=== PATIENT | female | born 1935 | race Caucasian/White ===

== ENCOUNTER 2024-08-13 14:26 | Inpatient (IN) | payer MEDICARE ==
--- NOTE | 2024-08-13 15:16 | ED ---
General Adult HPI - General Chief complaint: Dizziness Stated complaint: Dizziness Time Seen by Provider: 08/13/24 14:56 Source: patient, family, EMS Mode of arrival: EMS Limitations: no limitations - History of Present Illness Initial comments: Pt is an 89-year-old female with a past medical history of aneurysm status post repair approximately 36 years ago presenting today for dizziness. Patient states that she went to stand up and began feeling dizzy and lightheaded so sat back down. The dizziness persisted she called 911 or return to the emergency department. She had associated nausea but no episodes of emesis. States has been giving Zofran in the ambulance her symptoms have since improved. She still endorses mild lightheadedness that is present at rest. States that over the last 2 to 3 weeks she has had "a hard pain" along the right side of her neck. She has not taken any pain medications for the pain. Pain worsens with turning her head to the right. She denies any changes in vision, new numbness, weakness, chest pain, shortness of breath/difficulty in breathing, abdominal pain, vomiting, fevers, chills, cough, dysuria or urinary frequency, diarrhea, melena, hematochezia or additional complaints. She takes lisinopril for high blood pressure, otherwise does not take any blood thinners or medications. - Related Data Home Medications Medication Instructions Recorded Confirmed Aspirin EC [Ecotrin Low Dose] 81 mg PO DAILY 08/13/24 08/13/24 Levothyroxine Sodium [Synthroid] 50 mcg PO DIRECTED 08/13/24 08/13/24 Pravastatin Sodium [Pravachol] 20 mg PO DIRECTED 08/13/24 08/13/24 lisinopriL [Zestril] 10 mg PO DIRECTED 08/13/24 08/13/24 Allergies Allergy/AdvReac Type Severity Reaction Status Date / Time No Known Allergies Allergy Verified 08/13/24 19:31 Review of Systems ROS Statement: Those systems with pertinent positive or pertinent negative responses have been documented in the HPI. ROS Other: All systems not noted in ROS Statement are negative. Past Medical History Past Medical History: Hyperlipidemia, Hypertension, Thyroid Disorder Additional Past Surgical History / Comment(s): brain aneurysm 50 years ago Smoking Status: Never smoker Past Alcohol Use History: None Reported Past Drug Use History: None Reported General Exam - General Exam Comments Initial Comments: PE: CONSTITUTIONAL: No apparent distress, well appearing SKIN: Warm, dry, no jaundice, hives or petechiae EYES: Pupils are equally round, extraocular movements intact without nystagmus, clear conjunctiva, non-icteric sclera HENT: Normocephalic, atraumatic, moist mucus membranes, oropharynx clear without exudates NECK: , Full range of motion, normal appearance, no neck TTP PULMONARY: Clear to auscultation without wheezes, rhonchi, or rales, normal excursion, no accessory muscle use and no stridor CARDIOVASCULAR: Regular rate, rhythm, normal S1 and S2. No appreciated murmurs, rubs or gallops. Strong radial pulses with intact distal perfusion. No lower extremity edema GASTROINTESTINAL: Soft, active bowel sounds throughout, non-tender, non- distended, no palpable masses, no rebound or guarding. No hepatosplenomegaly GENITOURINARY: MUSCULOSKELETAL: Extremities have no gross deformity, no edema, redness, or swelling. No calf swelling. Reproducible muscular tenderness to palpation just posterior to the right sternocleidomastoid where neck meets the shoulder on the right, no palpable masses or fluctuance NEUROLOGIC:_a/o x 3, GCS 15, normal mentation and speech. Moves all extremities x 4 without motor or sensory deficit, cranial nerves: II (visual pham without defects), III, IV and (extraocular movements are intact, pupils are equal with normal reaction to light), V (intact facial sensation and jaw opening), VII (no facial droop), IX and X (normal palate movement, midline uvula, normal voice), XI (symmetrical shoulder shrug and lateral head rotation against resistance), XII (midline tongue protrusion). Motor strength is 5/5 in all extremities. No abnormal movements. Normal muscle tone. Sensation to light touch is intact bilaterally. No cerebellar signs (uirsay-si-dgvi, ihko-ge-dqif are normal) PSYCHIATRIC:_normal mood and affect, thought process is clear and linear Limitations: no limitations Course Vital Signs 08/13/24 08/13/24 08/13/24 14:39 15:06 15:40 Temperature 97.4 F L Pulse Rate 62 66 Pulse Rate [ 64 Bottle Inspector ] Respiratory 18 18 Rate Blood Pressure 164/79 163/102 Blood Pressure 169/69 [Left Arm Sitting] Blood Pressure 165/88 [Left Arm Standing] Blood Pressure 159/71 [Left Arm Supine] O2 Sat by Pulse 99 100 Oximetry 08/13/24 08/13/24 08/13/24 18:52 20:21 22:27 Temperature 97.8 F Pulse Rate 67 61 66 Pulse Rate [ Bottle Inspector ] Respiratory 16 16 20 Rate Blood Pressure 161/80 152/61 148/78 Blood Pressure [Left Arm Sitting] Blood Pressure [Left Arm Standing] Blood Pressure [Left Arm Supine] O2 Sat by Pulse 97 97 97 Oximetry EKG Findings - EKG Comments: EKG Findings:: Sinus Rhythm, Rate 62 bpm, [place] interval 160 ms, QRS duration 136 ms, QT/QTc 425/431 ms, axis deviation, right bundle branch block present, T wave inversion lead V1, aVR, no ST elevations or depressions Medical Decision Making - Medical Decision Making Was pt. sent in by a medical professional or institution (ALEKSANDAR Gutierrez, NEWSPAPER DISTRIBUTOR SUPERVISOR, urgent care, hospital, or intermediate...) When possible be specific @ -No Did you speak to anyone other than the patient for history (EMS, parent, family, police, friend...)? What history was obtained from this source @ -No Did you review nursing and triage notes (agree or disagree)? Why? @ -I reviewed nursing and triage notes-of notes triage note states that patient difficulty ambulating, states that this is secondary to her dizziness Were old charts reviewed (outside hosp., previous admission, EMS record, old EKG, old radiological studies, urgent care reports/EKG's, intermediate records)? Report findings @ -Medical records reviewed-no prior visits to this hospital noted Differential Diagnosis (chest pain, altered mental status, abdominal pain women, abdominal pain men, vaginal bleeding, weakness, fever, dyspnea, syncope, headache, dizziness, GI bleed, back pain, seizure, CVA, palpatations, mental health, musculoskeletal)? @ -Differential Dizziness: Benign paroxysmal positional Vertigo, Meniere's disease, acoustic neuroma, vertebrobasilar insufficiency, cerebellar stroke, hypovolemic, arrhythmia, coronary artery syndrome, anemia, this is not meant to be an all-inclusive list EKG interpreted by me (3pts min.). @ -As above X-rays interpreted by me (1pt min.). @No cardiomegaly or consolidations CT interpreted by me (1pt min.). @Reviewed CT brain, CTA, I see no evidence of hemorrhage, mass effect or large vessel occlusion or dissection, respectively U/S interpreted by me (1pt. min.). @ -None done What testing was considered but not performed or refused? (CT, X-rays, U/S, labs)? Why? @ -None What meds were considered but not given or refused? Why? @ -None Did you discuss the management of the patient with other professionals (professionals i.e. , PA, NEWSPAPER DISTRIBUTOR SUPERVISOR, lab, RT, psych nurse, sexual assault social worker, mechanic and welder, teacher, education officer, clinical case manager)? Give summary @Case was discussed with Dr. Olivia, neurointerventional list at [facility], he kindly reviewed patient's imaging and recommends admission for observation with MRI, if evidence of occlusion/ concerning findings on MRI, can be considered for stenting and transferred to [facility] if needed Was smoking cessation discussed for >3mins.? @ -No Was critical care preformed (if so, how long)? @ -No Were there social determinants of health that impacted care today? How? (Homelessness, low income, unemployed, alcoholism, drug addiction, transportation, low edu. Level, literacy, decrease access to med. care, usp, rehab)? @ -No Was there de-escalation of care discussed even if they declined (Discuss DNR or withdrawal of care, Hospice)? @ -No What co-morbidities impacted this encounter? (DM, HTN, Smoking, COPD, CAD, Cancer, CVA, ARF, Chemo, Hep., AIDS, mental health diagnosis, sleep apnea, morbid obesity)? Prior aneurysm, hypertension Was patient admitted / discharged? Hospital course, mention meds given and route, prescriptions, significant lab abnormalities, going to OR and other pertinent info. @ -[place]- This is a pleasant 89-year-old female PMH, hypertension, aneurysm status post clipping presenting today for dizziness. Patient mildly hypertensive on arrival, otherwise vital signs within acceptable limits. Complete history physical exam performed. Patient has no focal neurologic deficits, no cerebellar signs. Her dizziness is positional however it combined with her neck pain x 2 weeks cannot rule out vertebral artery dissection so will obtain CT brain and CTA head and neck in addition to comprehensive labs. Patient received small IV fluid bolus and Tylenol and lidocaine patch for her neck pain. Patient agreeable plan of care. Labs reivewed. Significant for creatinine of 1.33 and a GFR of 35 however there is no prior available for comparison. Chest x-ray showed findings consistent with COPD however patient has no history of COPD, no shortness of breath and lungs are clear to auscultation bilaterally. CT brain shows no hemorrhage however CTA does remark on aneurysm in the right vertebral artery near aneurysm clip. I discussed this with patient and her daughter. Patient states that her patient her has improved and was able to ambulate to the bathroom without difficulty however a neurovascular surgery consultation was recommended by radi ologist. Patient does state that she had an aneurysm clipped in [place] previously 36 years ago. Pt was able to ambulate to the bathroom and was asymptomatic with ambulation. Case discussed with Dr. Kendall, please see recs above. Pt agreeable [facility] admission. Case discussed with TJ Hankins, kindly accepts pt for admission. MRI/MRA head and neck ordered. Pt admitted in stable condition. Undiagnosed new problem with uncertain prognosis? @ -No Drug Therapy requiring intensive monitoring for toxicity (Heparin, Nitro, Insulin, Cardizem)? @ -No Were any procedures done? @ -No Diagnosis/symptom? @ Dizziness, right sided neck pain Acute, or Chronic, or Acute on Chronic? @acute Uncomplicated (without systemic symptoms) or Complicated (systemic symptoms)? @ complicate Side effects of treatment? @ -No Exacerbation, Progression, or Severe Exacerbation? @ -No Poses a threat to life or bodily function? How? (Chest pain, USA, PA, pneumonia, PE, COPD, DKA, ARF, appy, cholecystitis, CVA, Diverticulitis, Homicidal, Suicidal, threat to staff... and all critical care pts) @ -Potentially, if 2/2 aneursym or TIA - Lab Data Result diagrams: 08/13/24 15:28 08/13/24 15:28 Lab Results 08/13/24 08/13/24 08/13/24 Range/Units 15:28 15:28 15:28 WBC 5.8 (3.8-10.6) k/uL RBC 3.91 (3.80-5.40) m/uL Hgb 12.1 (11.4-16.0) gm/dL Hct 37.5 (34.0-46.0) % MCV 96.0 (80.0-100.0) fL MCH 30.9 (25.0-35.0) pg MCHC 32.2 (31.0-37.0) g/dL RDW 12.9 (11.5-15.5) % Plt Count 249 (150-450) k/uL MPV 6.9 Neutrophils % 75 % Lymphocytes % 17 % Monocytes % 5 % Eosinophils % 1 % Basophils % 1 % Neutrophils # 4.3 (1.3-7.7) k/uL Lymphocytes # 1.0 (1.0-4.8) k/uL Monocytes # 0.3 (0-1.0) k/uL Eosinophils # 0.0 (0-0.7) k/uL Basophils # 0.1 (0-0.2) k/uL PT 10.7 (10.0-12.5) sec INR 1.0 (<1.2) APTT 22.0 (22.0-30.0) sec Sodium 139 (137-145) mmol/L Potassium 4.6 (3.5-5.1) mmol/L Chloride 103 (98-107) mmol/L Carbon Dioxide 27 (22-30) mmol/L Anion Gap 9 mmol/L BUN 23 H (7-17) mg/dL Creatinine 1.33 H (0.52-1.04) mg/dL Est GFR (CKD-EPI)AfAm 41 (>60 ml/min/1.73 sqM) Est GFR (CKD-EPI)NonAf 35 (>60 ml/min/1.73 sqM) Glucose 100 H (74-99) mg/dL Calcium 10.8 H (8.4-10.2) mg/dL Magnesium 1.9 (1.6-2.3) mg/dL Total Bilirubin 0.3 (0.2-1.3) mg/dL AST 23 (14-36) U/L ALT 17 (4-34) U/L Alkaline Phosphatase 62 (38-126) U/L Troponin I (0.000-0.034) ng/mL Total Protein 6.8 (6.3-8.2) g/dL Albumin 4.5 (3.5-5.0) g/dL Urine Color Urine Appearance (Clear) Urine pH (5.0-8.0) Ur Specific [place] (1.001-1.035) Urine Protein (Negative) Urine Glucose (UA) (Negative) Urine Ketones (Negative) Urine Blood (Negative) Urine Nitrite (Negative) Urine Bilirubin (Negative) Urine Urobilinogen (<2.0) mg/dL Ur Leukocyte Esterase (Negative) Urine WBC (0-5) /hpf Ur Squamous Epith Cells (0-4) /hpf Urine Mucus (None) /hpf 08/13/24 08/13/24 08/13/24 Range/Units 15:28 16:56 20:19 WBC (3.8-10.6) k/uL RBC (3.80-5.40) m/uL Hgb (11.4-16.0) gm/dL Hct (34.0-46.0) % MCV (80.0-100.0) fL MCH (25.0-35.0) pg MCHC (31.0-37.0) g/dL RDW (11.5-15.5) % Plt Count (150-450) k/uL MPV Neutrophils % % Lymphocytes % % Monocytes % % Eosinophils % % Basophils % % Neutrophils # (1.3-7.7) k/uL Lymphocytes # (1.0-4.8) k/uL Monocytes # (0-1.0) k/uL Eosinophils # (0-0.7) k/uL Basophils # (0-0.2) k/uL PT (10.0-12.5) sec INR (<1.2) APTT (22.0-30.0) sec Sodium (137-145) mmol/L Potassium (3.5-5.1) mmol/L Chloride (98-107) mmol/L Carbon Dioxide (22-30) mmol/L Anion Gap mmol/L BUN (7-17) mg/dL Creatinine (0.52-1.04) mg/dL Est GFR (CKD-EPI)AfAm (>60 ml/min/1.73 sqM) Est GFR (CKD-EPI)NonAf (>60 ml/min/1.73 sqM) Glucose (74-99) mg/dL Calcium (8.4-10.2) mg/dL Magnesium (1.6-2.3) mg/dL Total Bilirubin (0.2-1.3) mg/dL AST (14-36) U/L ALT (4-34) U/L Alkaline Phosphatase (38-126) U/L Troponin I <0.012 <0.012 (0.000-0.034) ng/mL Total Protein (6.3-8.2) g/dL Albumin (3.5-5.0) g/dL Urine Color Light Yellow Urine Appearance Clear (Clear) Urine pH 5.0 (5.0-8.0) Ur Specific [place] 1.015 (1.001-1.035) Urine Protein Negative (Negative) Urine Glucose (UA) Negative (Negative) Urine Ketones Negative (Negative) Urine Blood Negative (Negative) Urine Nitrite Negative (Negative) Urine Bilirubin Negative (Negative) Urine Urobilinogen <2.0 (<2.0) mg/dL Ur Leukocyte Esterase Small H (Negative) Urine WBC 2 (0-5) /hpf Ur Squamous Epith Cells 3 (0-4) /hpf Urine Mucus Rare H (None) /hpf Disposition Clinical Impression: Dizziness, Vertebral artery aneurysm Disposition: ADMITTED IP TO THIS [facility] Condition: Stable
[2024-08-13] MEDS: SODIUM CHLORIDE 0.9% 500 ML 500 ML IV STA (15:26)
[2024-08-13 15:39] LABS: Basophils # (A) 0.1 k/uL (0-0.2); Basophils % (A) 1 %; Eosinophils % (A) 1 %; HCT 37.5 % (34.0-46.0); HGB 12.1 gm/dL (11.4-16.0); Lymphocytes % (A) 17 %; MCH 30.9 pg (25.0-35.0); MCHC 32.2 g/dL (31.0-37.0); Mean Platelet Volume 6.9; Monocytes # (A) 0.3 k/uL (0-1.0); Monocytes % (A) 5 %; Neutrophils # (A) 4.3 k/uL (1.3-7.7); Neutrophils % (A) 75 %; Platelet Count 249 k/uL (150-450); RBC 3.91 m/uL (3.80-5.40); RDW 12.9 % (11.5-15.5); WBC 5.8 k/uL (3.8-10.6)
[2024-08-13] MEDS: ACETAMINOPHEN TAB 325 MG TAB PO STA (15:44)
[2024-08-13] MEDS: LIDOCAINE 4% PATCH TOPICAL ONE (15:45)
[2024-08-13 15:48] LABS: ALT 17 U/L (4-34); AST 23 U/L (14-36); African American GFR (CKD) 41 (>60 ml/min/1.73 sqM); Albumin 4.5 g/dL (3.5-5.0); Alkaline Phosphatase 62 U/L (38-126); Anion Gap 9 mmol/L; Blood Urea Nitrogen 23 mg/dL (7-17); Calcium 10.8 mg/dL (8.4-10.2); Carbon Dioxide 27 mmol/L (22-30); Chloride 103 mmol/L (98-107); Glucose 100 mg/dL (74-99); Magnesium 1.9 mg/dL (1.6-2.3); Non-African American GFR(CKD) 35 (>60 ml/min/1.73 sqM); Potassium 4.6 mmol/L (3.5-5.1); Sodium 139 mmol/L (137-145); Total Bilirubin 0.3 mg/dL (0.2-1.3); Total Protein 6.8 g/dL (6.3-8.2)
[2024-08-13 15:55] LABS: Prothrombin Time 10.7 sec (10.0-12.5)
--- NOTE | 2024-08-13 16:13 | XR ---
EXAMINATION TYPE: XR chest 2V DATE OF EXAM: 08/13/2024 4:05 PM COMPARISON: None CLINICAL INDICATION: Female, 89 years old with history of dizziness; [facility] TECHNIQUE: XR chest 2V Frontal and lateral views of the chest. FINDINGS: Lungs/Pleura: There is no evidence of pleural effusion, focal consolidation, or pneumothorax. Pulmonary vascularity: Unremarkable. Heart/mediastinum: Cardiomediastinal silhouette is unremarkable. Atherosclerotic calcifications are seen in the aorta. Hiatal hernia projects over the mediastinum. Musculoskeletal: No acute osseous pathology. IMPRESSION: 1. No acute cardiopulmonary disease process. 2. COPD changes. [facility], , 08/13/2024 4:11 PM
[2024-08-13 17:12] LABS: Appearance,Urine Clear (Clear); Bilirubin,Urine Negative (Negative); Blood,Urine Negative (Negative); Color,Urine Light Yellow; Glucose,Urine (UA) Negative (Negative); Ketones,Urine Negative (Negative); Leukocyte Esterase,Urine Small (Negative); Mucus,Urine Rare /hpf; Nitrite,Urine Negative (Negative); Protein,Urine Negative (Negative); Specific Gravity,Urine 1.015 (1.001-1.035); Squamous Epithelial Cell,Urine 3 /hpf (0-4); Urobilinogen,Urine <2.0 mg/dL (<2.0); WBC,Urine 2 /hpf (0-5)
--- NOTE | 2024-08-13 17:47 | CT ---
EXAMINATION TYPE: CT brain wo con DATE OF EXAM: 08/13/2024 5:22 PM COMPARISON: None. CLINICAL INDICATION: Female, 89 years old with history of sudden onset dizziness w/ standing, Dizzine ss. TECHNIQUE: Brain: Axial CT images of the brain were obtained with coronal and sagittal reformats created and rev iewed. Contrast used: None. Oral contrast used: None. CT DLP: 1056 mGycm, Automated exposure control for dose reduction was used. FINDINGS: Brain: Extra-axial spaces: No abnormal extra-axial fluid collections. Ventricular system: Dilatation in proportion to cerebral atrophy. Cerebral parenchyma: Remote injury to the right inferior temporal lobe. Cerebral atrophy. No acute in traparenchymal hemorrhage or mass effect. The rogers-white junction is well differentiated. Scattered hypoattenuating areas are seen within the white matter. Cerebellum: Unremarkable. Mass effect: No evidence of midline shift. Intracranial vasculature: Atherosclerotic calcifications of the intracranial vessels. Aneurysm clip n oted within the middle cranial fossa near the foramen magnum. Soft tissues: Normal. Calvarium/osseous structures: No depressed skull fracture. Paranasal sinuses and mastoid air cells: Mild scattered paranasal sinus disease. Visualized orbits: Orbital contents are intact. IMPRESSION: 1. No acute intracranial process. 2. Nonspecific white matter changes, likely secondary to chronic small vessel ischemic disease. 3. Remote right inferior temporal lobe injury. [facility], , 08/13/2024 5:45 PM
--- NOTE | 2024-08-13 17:56 | CT ---
EXAMINATION TYPE: CT angio head neck DATE OF EXAM: 08/13/2024 5:33 PM COMPARISON: Same day CT head.. CLINICAL INDICATION: Female, 89 years old with history of dizziness w/ standing, right Neck pain; PHH , Dizziness. TECHNIQUE: Axially acquired helical CT angiogram of the head and neck was obtained with contrast. Axi al images are supplemented with 3D reconstructions and MIP images which were post-processed at an in dependent workstation. NASCET criteria used. Contrast used:65 ml mL of Isovue 370 with IV Contrast, Oral contrast used: None. CT DLP: 303.5 mGycm, Automated exposure control for dose reduction was used. FINDINGS: CTA HEAD: No evidence of acute intracranial hemorrhage, mass effect, or midline shift. The ventricles, sulci, a nd cisterns are unremarkable. Vertebral arteries: The vertebral arteries are patent. Left vertebral artery may terminate as the pos terior inferior cerebellar artery. Vertebral artery dominance: Dominant right. Basilar artery: Saccular dilation near the distal right vertebral artery/confluence of the vertebral arteries aneurysm clip possibly the basilar artery measuring up to 7 x 8 mm. Internal Carotid arteries: The cervical, petrous, cavernous and supraclinoid segments are normal. STEVIE: Patent with no evidence of aneurysm. ACOM: Present without evidence of aneurysm. MCA: Patent with no evidence of aneurysm. IMMUNOLOGY SPECIALIST: Patent with no evidence of aneurysm. PCOM: Hypoplastic bilaterally. Dural sinuses: Patent. Postsurgical changes to the right skull from right temporal bone. Bilaterally aphakia. Calcified scle ral plaques bilaterally. large retention cyst versus mucosal thickening left maxillary sinus measurin g up to 3.7 years. CTA NECK: Right Carotid System: The common carotid artery and external carotid artery are patent. The carotid bifurcation demonstrate s no evidence of hemodynamically significant stenosis. The remaining portions of the internal carotid artery demonstrate normal size without significant narrowing. Left Carotid System: The common carotid artery and external carotid artery are patent. The carotid bifurcation demonstrate s no evidence of hemodynamically significant stenosis. The remaining portions of the internal carotid artery demonstrate normal size without significant narrowing. Vertebral arteries are patent without evidence hemodynamically significant stenosis. There is a three-vessel aortic arch. The origins of the great vessels are patent. No evidence of hemo dynamically significant stenosis. Upper thorax: Moderate centrilobular emphysema changes throughout the lungs. IMPRESSION: 1. 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 Neural Vascular surgical consultat ion recommended. This is thought to be arising from the distal right vertebral artery near its expect ed confluence of the left vertebral artery however the left. vertebral artery may terminate as the po sterior inferior cerebellar artery with diminutive tiny connecting vessel adjoining the right vertebr al artery. 2. No evidence of dissection of the cervical internal carotid arteries or vertebral arteries. 3. No any evidence of significant stenosis at the carotid bifurcations. 4. No evidence of intracranial high-grade stenosis. 5. Moderate emphysema. [facility], , 08/13/2024 5:53 PM
[2024-08-13] MEDS ORDERED: ALPRAZolam 0.25 MG TAB PO PRN (20:46)
[2024-08-13] MEDS: FAMOTIDINE 20 MG TAB PO SCH (22:31)
[2024-08-14] MEDS: MELATONIN 5 MG TABLET PO STA ×2 (00:16→00:26)
[2024-08-14] MEDS: ACETAMINOPHEN TAB 325 MG TAB PO PRN (06:25)
[2024-08-14] MEDS: LEVOTHYROXINE 50 MCG TAB PO SCH (06:27)
[2024-08-14] MEDS: lisinopriL 10 MG TAB PO SCH (09:01)
[2024-08-14] MEDS: PRAVASTATIN SODIUM 20 MG TAB PO SCH (09:01)
[2024-08-14] MEDS: ASPIRIN 325 MG TAB PO SCH (09:01)
--- NOTE | 2024-08-14 09:16 | P.HPIM ---
History of Present Illness This is a pleasant 89 years old female with past medical history of brain aneurysm and history of stroke. Presents because she was feeling dizzy and when she was sitting trying to get up she got really dizzy and she felt she is going to fall but she denies any syncope or presyncope and no vertigo, she describes the dizziness as nonspecific It is associated with headache, head pain is moderate in the back of the head and neck more than the head nonradiating getting better with Tylenol She denies any chest pain or dyspnea. No GI/ symptom. She denies slurred speech or blurred vision, no limb weakness or tingling. She denies smoking alcohol or illicit drugs She is takes low-dose aspirin at home Review of Systems Review of systems CONSTITUTIONAL: No fever, no malaise, no fatigue. HEENT: No recent visual problems or hearing problems. Denied any sore throat. CARDIOVASCULAR: No orthopnea, PND, no palpitations, no syncope. PULMONARY: No shortness of breath, no cough, no hemoptysis. GASTROINTESTINAL: No diarrhea, no nausea, no vomiting, no abdominal pain. Normoactive bowel sounds. NEUROLOGICAL: No headaches, no weakness, no numbness. HEMATOLOGICAL: Denies any bleeding or petechiae. GENITOURINARY: Denies any burning micturition, frequency, or urgency. MUSCULOSKELETAL/RHEUMATOLOGICAL: Denies any joint pain, swelling, or any muscle pain. ENDOCRINE: Denies any polyuria or polydipsia. Past Medical History Past Medical History: Hyperlipidemia, Hypertension, Thyroid Disorder Additional Past Surgical History / Comment(s): brain aneurysm 50 years ago Smoking Status: Never smoker Past Alcohol Use History: None Reported Past Drug Use History: None Reported Medications and Allergies Home Medications Medication Instructions Recorded Confirmed Type Aspirin EC [Ecotrin Low Dose] 81 mg PO DAILY 08/13/24 08/13/24 History Levothyroxine Sodium [Synthroid] 50 mcg PO DIRECTED 08/13/24 08/13/24 History Pravastatin Sodium [Pravachol] 20 mg PO DIRECTED 08/13/24 08/13/24 History lisinopriL [Zestril] 10 mg PO DIRECTED 08/13/24 08/13/24 History Allergies Allergy/AdvReac Type Severity Reaction Status Date / Time No Known Allergies Allergy Verified 08/13/24 19:31 Physical Exam Vitals: Vital Signs Temp Pulse Pulse Resp BP BP BP 08/14/24 07:39 51 L 18 126/60 08/14/24 05:57 63 16 143/57 08/14/24 01:05 55 L 18 141/74 08/14/24 00:00 98.0 F 59 L 18 134/69 08/13/24 22:27 97.8 F 66 20 148/78 08/13/24 20:21 61 16 152/61 08/13/24 18:52 67 16 161/80 08/13/24 15:40 64 169/69 165/88 08/13/24 15:06 66 18 163/102 08/13/24 14:39 97.4 F L 62 18 164/79 BP Pulse Ox 08/14/24 07:39 97 08/14/24 05:57 96 08/14/24 01:05 93 L 08/14/24 00:00 95 08/13/24 22:27 97 08/13/24 20:21 97 08/13/24 18:52 97 08/13/24 15:40 159/71 08/13/24 15:06 100 08/13/24 14:39 99 GENERAL: The patient is alert and oriented x3, not in any acute distress. Well developed, well nourished. -HEENT: Pupils are round and equally reacting to light. EOMI. No scleral icterus. No conjunctival pallor. Normocephalic, atraumatic. No pharyngeal erythema. No thyromegaly. Neck tenderness CARDIOVASCULAR: S1 and S2 present. No murmurs, rubs, or gallops. PULMONARY: Chest is clear to auscultation, no wheezing , no crackles. ABDOMEN: Soft, nontender, nondistended, normoactive bowel sounds. No palpable organomegaly. MUSCULOSKELETAL: No joint swelling or deformity. EXTREMITIES: No cyanosis, clubbing, or pedal edema. NEUROLOGICAL: Gross neurological examination did not reveal any focal deficits. SKIN: No rashes. no petechiae. Results CBC & Chem 7: 08/13/24 15:28 08/13/24 15:28 Labs: Abnormal Lab Results - Last 24 Hours (Table) 08/13/24 08/13/24 Range/Units 15:28 16:56 BUN 23 H (7-17) mg/dL Creatinine 1.33 H (0.52-1.04) mg/dL Glucose 100 H (74-99) mg/dL Calcium 10.8 H (8.4-10.2) mg/dL Ur Leukocyte Esterase Small H (Negative) Urine Mucus Rare H (None) /hpf Assessment and Plan Assessment: On admission she is afebrile and vital stable Labs basically unremarkable including CBC, BMP, LFT, INR, troponin Creatinine 1.3, unknown baseline but looks like this is baseline EKG showing sinus rhythm at 62 with right bundle branch block CTA of the head and neck showing saccular aneurysm 7 x 8 mm near aneurysm clip . Also has moderate emphysema CT of the brain showing no acute intracranial process, remote right temporal infarct Chest x-ray is negative for acute process Plan: Patient started on aspirin 325 mg Neurology consult MRI of the brain is ordered in the emergency room and is pending Labs and medication were reviewed.. Continue same treatment. Continue with symptomatic treatment. Resume home medication. Monitor labs and vitals. DVT and GI prophylaxis. Further recommendations as per clinical course of the patient DVT prophylaxis: Subcutaneous heparin GI Prophylaxis: Pepcid PT/OT: Pending Prognosis is guarded
[2024-08-14 11:30] LABS: Chol/HDL Ratio 3.54 Ratio; LDL Cholesterol,Calculated 113.1 mg/dL (0.0-131.0)
[2024-08-14] MEDS: ALPRAZolam 0.25 MG TAB PO PRN (21:56)
[2024-08-15] MEDS ORDERED: HALOPERIDOL LACTATE 5 MG/ML 1 ML VIAL IM PRN (01:32)
--- NOTE | 2024-08-15 02:16 | P.CNNES ---
History of Present Illness Consult date: 08/14/24 Requesting physician: Anamika Fajardo Reason for Consult: Verterbal aneurysm History of Present Illness: Patient is a 89-year-old female came to the hospital by ambulance yesterday at 2:26 PM for an episode of dizziness. Patient is very agitated, not able to provide any history. Please refer to examination below. I spoke to patient's daughter Maryanne, who provided with a history. She mentioned that patient has history of cerebral aneurysm, that was clipped about 38 years ago. At that time she had presented with sudden onset of getting crossed eyes. After she underwent aneurysm repair, symptoms went away. Patient came to the hospital because she had an episode of dizziness and threw up. She was having coffee at breakfast, when all of a sudden she started feeling dizzy, and threw up. The dizziness lasted for about 20 minutes. Patient's daughter called EMS and she was brought to the hospital. Patient daughter denies any stroke symptoms like numbness, tingling, focal weakness, slurred speech or facial droop. Patient did not complain of any headache although she has been having some neck pain going to the spine. As per EMS flowsheet, patient was alert and orient x 4 in no obvious distress. Patient states that she was sitting in bed, writing out a check when she started getting dizzy. Patient stated that she was sitting for a period of time and denied any heavy activity. Patient denied any chest pain or difficulty breathing. Patient's glucose was 156. Blood pressure 183/74, which came down to 169/74, pulse rate 68, respiration 18, saturation 97%. Temperature 97.9. Blood test shows normal CBC, PT PTT, normal electrolytes, BUN 23 creatinine 1.33. Calcium 10.8. Hepatic panel is normal. Troponin negative. Lipid panel normal. UA negative. Chest x-ray showed no acute cardiopulmonary process. COPD changes. CT head showed no acute intracranial process. Nonspecific white matter changes, likely secondary to chronic small vessel ischemic disease. Remote right inferior temporal lobe injury. I personally reviewed CT head, agree with the findings. There is near complete opacification of the left maxillary sinus. There is some prominence of the ventricles, but somewhat consistent with amount of cortical atrophy. EKG showed sinus rhythm. CTA of head and neck revealed cerebral aneurysm as per report mentioned later. ED staff discussed case with Dr. Olivia, neurointerventional list at [facility], who reviewed patient's imaging and recommends admission for observation with MRI, if evidence of occlusion/ concerning findings on MRI, can be c onsidered for stenting and transferred to [facility] if needed Patient does take aspirin 81 mg, Pravachol 20 mg, lisinopril 10 mg and levothyroxine. Patient has history of hypertension and thyroid problem but no diabetes. She smoked about 1 pack/day for about 35 years, quit at age 50. No alcohol use. Patient's daughter denies patient having any dementia. She walks fine, drives. She lives with her daughter. Review of Systems ROS unobtainable: due to mental status Past Medical History Past Medical History: Hyperlipidemia, Hypertension, Thyroid Disorder Additional Past Surgical History / Comment(s): brain aneurysm 50 years ago Smoking Status: Never smoker Past Alcohol Use History: None Reported Past Drug Use History: None Reported Medications and Allergies Home Medications Medication Instructions Recorded Confirmed Type Aspirin EC [Ecotrin Low Dose] 81 mg PO DAILY 08/13/24 08/13/24 History Levothyroxine Sodium [Synthroid] 50 mcg PO DAILY 08/13/24 08/14/24 History Pravastatin Sodium [Pravachol] 20 mg PO DAILY 08/13/24 08/14/24 History lisinopriL [Zestril] 10 mg PO DAILY 08/13/24 08/14/24 History Allergies Allergy/AdvReac Type Severity Reaction Status Date / Time No Known Allergies Allergy Verified 08/13/24 19:31 Physical Examination - Vital Signs Vital Signs: Vital Signs Temp Pulse Resp BP Pulse Ox 08/14/24 20:09 51 L 17 141/66 98 08/14/24 19:00 51 L 16 132/103 98 08/14/24 17:00 59 L 14 142/69 95 08/14/24 14:45 51 L 14 146/65 96 08/14/24 10:31 49 L 16 148/63 98 08/14/24 07:39 51 L 18 126/60 97 08/14/24 05:57 63 16 143/57 96 08/14/24 01:05 55 L 18 141/74 93 L 08/14/24 00:00 98.0 F 59 L 18 134/69 95 08/13/24 22:27 97.8 F 66 20 148/78 97 Patient is an elderly female, who is very agitated, irritable, wants to get dressed for no clear reason. The nurses are in the room, trying to control the patient, but patient is getting very agitated, trying to hit the nurses. Patient speech and language functions are normal. Patient is walking very normally with no imbalance. Her face appears symmetric. Tone and bulk of muscles appears normal. Her extraocular muscles appears intact. Strength appears normal visibly. Patient did not cooperate with testing. Patient will try to hit if anyone goes close to her. Therefore detailed testing was deferred. Results - Laboratory Findings CBC and BMP: 08/13/24 15:28 08/13/24 15:28 Abnormal Lab Findings: Abnormal Labs 08/13/24 08/13/24 15: 16:56 BUN 23 H Creatinine 1.33 H Glucose 100 H Calcium 10.8 H Ur Leukocyte Esterase Small H Urine Mucus Rare H Assessment and Plan Assessment: * Episode of dizziness and vomiting, unclear cause. Possibly related to cerebral aneurysm. 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 * History of aneurysm repair 38 years ago * Altered mental status with agitation, likely delirium. * Hypertension * Hyperlipidemia * Ex tobacco use Plan: * CTA of head and neck revealed saccular aneurysm near aneurysm clip measuring up to 8 x 7 mm. Neurovascular surgical consultation recommended. This is thought to be arising from the distal right vertebral artery near its expected confluence of the left vertebral artery however the left vertebral artery may terminate as a posterior inferior cerebral artery with diminutive tiny connecting vessel and joining the right vertebral artery. No evidence of dissection of the cervical ICA or vertebral arteries. No evidence of significant stenosis at the carotid bifurcations. No evidence of intracranial high-grade stenosis. * May consider lumbar puncture to look for subarachnoid hemorrhage. Patient at present not cooperating. * Keep blood pressure <160 systolic. * Patient on aspirin 325 mg daily. * Apparently neurointervention Dr. Olivia is aware of the cerebral aneurysm. He is recommending MRI of the brain and MRA of the brain. Uncertain if patient can undergo MRI of the brain because of aneurysm clipping. * Recommend patient transferred to [facility] for further evaluation and treatment of this cerebral aneurysm. * Dr. Juan A Beltran will resume neurology service in the morning. * Thank you for the consult.
[2024-08-15] MEDS: FAMOTIDINE 20 MG TAB PO SCH (10:33)
[2024-08-15 16:45] LABS: Basophils % (A) 1 %; Eosinophils # (A) 0.2 k/uL (0-0.7); Eosinophils % (A) 4 %; HCT 39.5 % (34.0-46.0); HGB 12.7 gm/dL (11.4-16.0); Lymphocytes # (A) 1.5 k/uL (1.0-4.8); Lymphocytes % (A) 28 %; MCHC 32.1 g/dL (31.0-37.0); MCV 96.3 fL (80.0-100.0); Mean Platelet Volume 6.6; Monocytes # (A) 0.4 k/uL (0-1.0); Monocytes % (A) 8 %; Neutrophils % (A) 57 %; Platelet Count 266 k/uL (150-450); RDW 12.7 % (11.5-15.5); WBC 5.3 k/uL (3.8-10.6)
[2024-08-15 16:54] LABS: African American GFR (CKD) 48 (>60 ml/min/1.73 sqM); Anion Gap 11 mmol/L; Blood Urea Nitrogen 19 mg/dL (7-17); Calcium 10.4 mg/dL (8.4-10.2); Carbon Dioxide 22 mmol/L (22-30); Chloride 106 mmol/L (98-107); Glucose 98 mg/dL (74-99); Non-African American GFR(CKD) 41 (>60 ml/min/1.73 sqM); Sodium 139 mmol/L (137-145)
[2024-08-15 17:03] LABS: Potassium 4.3 mmol/L (3.5-5.1)
[2024-08-15] MEDS: QUEtiapine 25 MG TAB PO SCH (19:34)
--- NOTE | 2024-08-15 20:01 | P.PN ---
Subjective Progress Note Date: 08/15/24 I am seeing the patient for the first time during this hospital admission. Please refer to Dr. Frazier's note for further details. The patient has been having episode of dizziness with vomiting. She has history of aneurysm and had a clip in the past. She denies any focal deficit. She feels dizziness is somewhat better today compared to yesterday. No further vomiting. My colleague recommended the patient to be transferred to [facility] for further evaluation of the cerebral aneurysm. Objective - Vital Signs Vital signs: Vital Signs Temp 97.5 F L 08/15/24 19:32 Pulse 62 08/15/24 19:32 Resp 16 08/15/24 19:32 BP 141/75 08/15/24 19:32 Pulse Ox 97 08/15/24 19:32 FiO2 Intake & Output 08/15/24 08/15/24 08/16/24 06:59 18:59 06:59 Intake Total 720 Balance 720 Weight 68.039 kg Intake: Oral 720 Other: Voiding Method Toilet Toilet # Voids 2 3 - Exam General: Lying in bed and is not in acute distress. Neuro: Somewhat limited because of patient cooperation. Upon examining her, she was reluctant and cooperating with examination. The pupils are round equal reactive to light. Pupils are 4 mm bilaterally. Extraocular movements intact and no nystagmus. No facial weakness. No dysarthria Motor strength she is left in all extremities above gravity. Cerebellar: There is some hesitancy and performing at but with limitation there is no ataxia or dysmetria with [id number] bilaterally - Labs CBC & Chem 7: 08/15/24 16:32 08/15/24 16:32 Labs: Abnormal Lab Results - Last 24 Hours (Table) 08/15/24 Range/Units 16:32 BUN 19 H (7-17) mg/dL Creatinine 1.17 H (0.52-1.04) mg/dL Calcium 10.4 H (8.4-10.2) mg/dL Assessment and Plan Assessment: * Episode of dizziness and vomiting, unclear cause. Possibly related to cerebral aneurysm. 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 * History of aneurysm repair 38 years ago * Altered mental status with agitation, likely delirium. * Hypertension * Hyperlipidemia * Ex tobacco use Plan: * CTA of head and neck revealed saccular aneurysm near aneurysm clip measuring up to 8 x 7 mm. Neurovascular surgical consultation recommended. This is th ought to be arising from the distal right vertebral artery near its expected confluence of the left vertebral artery however the left vertebral artery may terminate as a posterior inferior cerebral artery with diminutive tiny connecting vessel and joining the right vertebral artery. No evidence of dissection of the cervical ICA or vertebral arteries. No evidence of significant stenosis at the carotid bifurcations. No evidence of intracranial high-grade stenosis. * Per Dr. Frazier, consider lumbar puncture to look for subarachnoid hemorrhage but she is not cooperative for it. * Keep blood pressure <160 systolic. * Patient on aspirin 325 mg daily. * Per Dr. Freddie Olivia (Neuro-interventionalist) is recommending MRI of the brain and MRA of the brain. I was notified by nurse that unable to obtain MRI Brain because of clipping. Dr. Frazier recommend patient transferred to [facility] for further evaluation and treatment of this cerebral aneurysm. Plan is discussed with primary team N.P. Time with Patient: Less than 30
--- NOTE | 2024-08-16 03:39 | P.PN ---
Subjective Progress Note Date: 08/15/24 History of Present Illness This is a pleasant 89 years old female with past medical history of brain aneurysm and history of stroke. Presents because she was feeling dizzy and when she was sitting trying to get up she got really dizzy and she felt she is going to fall but she denies any syncope or presyncope and no vertigo, she describes the dizziness as nonspecific It is associated with headache, head pain is moderate in the back of the head and neck more than the head nonradiating getting better with Tylenol She denies any chest pain or dyspnea. No GI/ symptom. She denies slurred speech or blurred vision, no limb weakness or tingling. She denies smoking alcohol or illicit drugs She is takes low-dose aspirin at home 08/15/2024 Seen and evaluated in follow-up with multiple family members at bedside. Neurology following recommending transfer to [facility] with concerns of possible vertebral aneurysm. Patient does have history of clips that are not MRI compatible and MRI is ordered and was discussed further with neurology of [place] and possibly able to undergo cerebral angiogram. Transfer has been requested to [facility] and has been accepted by Dr. Epps of medicine and will have neurology evaluate the patient. Patient and family are agreeable currently waiting on a bed. Review of systems: Constitutional: No reports of fatigue, fever, or chills Cardiovascular: No reports of chest pain or palpitations Respiratory: No reports of shortness of breath or cough GI: No reports of nausea, vomiting, or diarrhea : No reports of dysuria or retention Neurovascular: reports of continued weakness and occasional dizziness All medications have been reviewed Physical exam: Gen: This is a 89-year-old female who is awake, alert and oriented x 2-3, well- developed, elderly appearing HEENT: Head is atraumatic, normocephalic. Pupils equal, round. Sclerae is anicteric. NECK: Supple. No JVD. No lymphadenopathy. No thyromegaly. LUNGS: Clear to auscultation. No wheezes or rhonchi. No intercostal retractions. HEART: Regular rate and rhythm. No murmur. ABDOMEN: Soft. Bowel sounds are present. No masses. No tenderness. EXTREMITIES: No pedal edema. No calf tenderness. NEUROLOGICAL: Patient is awake, alert and oriented x3. Cranial nerves 2 through 12 are grossly intact. diffusely weak Assessment: Dizziness, unspecified sacular aneurysm , 8x7 mm h/O CVA,CT brain showing remote right temporal infarct CKD III GI prophylaxis DVT prophylaxis Full code Plan: CTA done previously showing saccular aneurysm 7 x 8 mm near aneurysm clip. Evaluated by neurology and discussed with neuro interventionalists at [facility] as patient has previous clip unable to undergo MRI. Recommending transfer to tertiary treatment for possible cerebral angiogram for further evaluation. Patient and family are agreeable to the transfer and has been accepted by Dr. Epps at [facility] currently awaiting a bed. Transfer team to contact unit once a bed is available, possibly in the next 12 to 24 hours per transfer Continue current medications Will use Seroquel at night for increased agitation and confusion, probable dementia Currently awaiting a bed assignment at [facility] Overall prognosis is guarded The impression and plan of care has been dictated by Ting Deng, Nurse Practitioner as directed. Dr. Orion MD I have performed a history and examination and MDM of this patient, discussed the same with the dictator, and agree with the dictator's assessment and plan as written ,documented as a scribe. Based on total visit time, I have performed more than 50% of the visit. Objective - Vital Signs Vital signs: Vital Signs Temp 98.2 F 08/15/24 15:50 Pulse 75 08/15/24 15:50 Resp 17 08/15/24 15:50 BP 113/70 08/15/24 15:50 Pulse Ox 98 08/15/24 15:50 FiO2 Intake & Output 08/15/24 08/15/24 08/16/24 06:59 18:59 06:59 Intake Total 720 Balance 720 Weight 68.039 kg Intake: Oral 720 Other: Voiding Method Toilet Toilet # Voids 2 3 - Labs CBC & Chem 7: 08/15/24 16:32 08/15/24 16:32 Labs: Abnormal Lab Results - Last 24 Hours (Table) 08/15/24 Range/Units 16:32 BUN 19 H (7-17) mg/dL Creatinine 1.17 H (0.52-1.04) mg/dL Calcium 10.4 H (8.4-10.2) mg/dL
[2024-08-16 08:44] LABS: African American GFR (CKD) 40 (>60 ml/min/1.73 sqM); Anion Gap 10 mmol/L; Blood Urea Nitrogen 25 mg/dL (7-17); Calcium 10.6 mg/dL (8.4-10.2); Carbon Dioxide 26 mmol/L (22-30); Chloride 107 mmol/L (98-107); Glucose 100 mg/dL (74-99); Non-African American GFR(CKD) 34 (>60 ml/min/1.73 sqM); Potassium 4.6 mmol/L (3.5-5.1); Sodium 143 mmol/L (137-145)
--- NOTE | 2024-08-16 15:32 | P.PN ---
Subjective Progress Note Date: 08/16/24 This is a 89-year-old female awaiting transfer to [facility] related to concerns for vertebral aneurysm, as recommended per neurology. Neuro interventionalists recommended MRI and MRA of brain,but unable to obtain due to history of clips. CT angio of head neck reported saccular aneurysm near aneurys m clip measuring up to 8.7 mm. Neurovascular surgical consult recommended, which we do not have onsite. This is thought to be arising from the distal right vertebral artery near its expected confluence of the left vertebral artery however the left vertebral artery may terminate as a posterior inferior cerebellar artery with diminutive tiny connecting vessel adjoining the right vertebral artery. No evidence of dissection of the cervical internal carotid arteries or vertebral arteries. No evidence of significant stenosis at the carotid bifurcations. No evidence of intracranial high-grade stenosis. Moderate emphysema. This morning denies dizziness or headache. Denies chest pain, palpitations or shortness of breath. Labs pending. Objective - Vital Signs Vital signs: Vital Signs Temp 98.2 F 08/16/24 11:45 Pulse 63 08/16/24 11:45 Resp 17 08/16/24 11:45 BP 176/104 08/16/24 11:45 Pulse Ox 99 08/16/24 11:45 FiO2 Intake & Output 08/15/24 08/16/24 08/16/24 18:59 06:59 18:59 Intake Total 720 440 Balance 720 440 Intake: Oral 720 440 Other: Voiding Method Toilet Toilet Toilet # Voids 3 1 - Exam Gen: Elderly appearing,alert and oriented x 2-3, no acute distress HEENT: Head is atraumatic, normocephalic. Pupils equal, round. Sclerae is anicteric. NECK: Supple. No JVD. LUNGS: Unlabored, equal air entry, clear to auscultation. HEART: Regular rate and rhythm. No murmur. ABDOMEN: Soft. Bowel sounds are present. No masses. No tenderness. EXTREMITIES: No pedal edema. No calf tenderness. NEUROLOGICAL: Patient is awake, alert and oriented x3. Cranial nerves 2 through 12 are grossly intact. Generalized diffuse weakness. 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 h/O CVA,CT brain showing remote right temporal infarct CKD III Hypertension Hyperlipidemia Prior nicotine dependence Plan: Continue on current medication regimen ,monitoring and symptomatic treatment. Transfer in progress-accepted by Dr. Epps at [facility], awaiting bed. Transfer team stating no available bed currently. Follow closely with neurology. Prognosis guarded given multiple complex medical issues. The impression and plan of care has been dictated as directed. : I performed a history and examination of this patient, discussed the same with the dictator. I agree with the dictator's note ,documented as a scribe. Any additional findings or plans will be noted.
[2024-08-17 06:36] LABS: Glucose,Whole Blood 114 mg/dL (70-110)
--- NOTE | 2024-08-17 07:19 | CT ---
EXAMINATION TYPE: CODE STROKE: CT brain wo contr DATE OF EXAM: 08/17/2024 7:07 AM COMPARISON: 08/13/2024 CLINICAL INDICATION: Female, 89 years old with history of code stroke, Neuro deficits code stroke. TECHNIQUE: Brain: Axial CT images of the brain were obtained with coronal and sagittal reformats created and rev iewed. Contrast used: None. Oral contrast used: None. CT DLP: 1201.6 mGycm, Automated exposure control for dose reduction was used. FINDINGS: FINDINGS: Extra-axial spaces: No abnormal extra-axial fluid collections. Ventricular system: Dilatation in proportion to cerebral atrophy. Cerebral parenchyma: Remote injury to the right inferior temporal lobe. Cerebral atrophy. No acute in traparenchymal hemorrhage or mass effect. The rogers-white junction is well differentiated. Scattered hypoattenuating areas are seen within the white matter. Cerebellum: Unremarkable. Mass effect: No evidence of midline shift. Intracranial vasculature: Atherosclerotic calcifications of the intracranial vessels. Aneurysm clip n oted within the middle cranial fossa near the foramen magnum. Soft tissues: Normal. Calvarium/osseous structures: No depressed skull fracture. Paranasal sinuses and mastoid air cells: Mild scattered paranasal sinus disease. Visualized orbits: Orbital contents are intact. IMPRESSION: 1. No acute intracranial process. 2. Nonspecific white matter changes, likely secondary to chronic small vessel ischemic disease. 3. Remote right inferior temporal lobe injury. [facility], , 08/17/2024 7:17 AM
--- NOTE | 2024-08-17 07:50 | CT ---
EXAMINATION TYPE: CODE STROKE: CTA head neck DATE OF EXAM: 08/17/2024 7:41 AM COMPARISON: . CLINICAL INDICATION: Female, 89 years old with history of code stroke; PHH, AMS TECHNIQUE: Axially acquired helical CT angiogram of the head and neck was obtained with contrast. Axi al images are supplemented with 3D reconstructions and MIP images which were post-processed at an in dependent workstation. NASCET criteria used. Contrast used:65ml mL of Isovue 370 with IV Contrast, Oral contrast used: None. CT DLP: 374.5 mGycm, Automated exposure control for dose reduction was used. FINDINGS: CTA HEAD: No evidence of acute intracranial hemorrhage, mass effect, or midline shift. The ventricles, sulci, a nd cisterns are unremarkable. Vertebral arteries: The vertebral arteries are patent. Left vertebral artery may terminate as the pos terior inferior cerebellar artery. Vertebral artery dominance: Dominant right. Basilar artery: Saccular dilation near the distal right vertebral artery/confluence of the vertebral arteries aneurysm clip possibly the basilar artery measuring up to 7 x 8 mm. Internal Carotid arteries: The cervical, petrous, cavernous and supraclinoid segments are normal. STEVIE: Patent with no evidence of aneurysm. ACOM: Present without evidence of aneurysm. MCA: Patent with no evidence of aneurysm. NURSING PROGRAM MANAGER: Patent with no evidence of aneurysm. PCOM: Hypoplastic bilaterally. Dural sinuses: Patent. Postsurgical changes to the right skull from right temporal bone. Bilaterally aphakia. Calcified scle ral plaques bilaterally. large retention cyst versus mucosal thickening left maxillary sinus measurin g up to 3.7 years. CTA NECK: Right Carotid System: The common carotid artery and external carotid artery are patent. The carotid bifurcation demonstrate s no evidence of hemodynamically significant stenosis. The remaining portions of the internal carotid artery demonstrate normal size without significant narrowing. Left Carotid System: The common carotid artery and external carotid artery are patent. The carotid bifurcation demonstrate s no evidence of hemodynamically significant stenosis. The remaining portions of the internal carotid artery demonstrate normal size without significant narrowing. Vertebral arteries are patent without evidence hemodynamically significant stenosis. There is a three-vessel aortic arch. The origins of the great vessels are patent. No evidence of hemo dynamically significant stenosis. Upper thorax: Moderate centrilobular emphysema changes throughout the lungs. IMPRESSION: 1. 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 Neural Vascular surgical c onsultation recommended. This is thought to be arising from the distal right vertebral artery near it s expected confluence of the left vertebral artery however the left. vertebral artery may terminate a s the posterior inferior cerebellar artery with diminutive tiny connecting vessel adjoining the right vertebral artery. 2. No evidence of dissection of the cervical internal carotid arteries or vertebral arteries. 3. No any evidence of significant stenosis at the carotid bifurcations. 4. No evidence of intracranial high-grade stenosis. 5. Moderate emphysema. [facility], , 08/17/2024 7:48 AM
[2024-08-17 08:06] LABS: Appearance,Urine Clear (Clear); Bilirubin,Urine Negative (Negative); Blood,Urine Negative (Negative); Color,Urine Colorless; Glucose,Urine (UA) Negative (Negative); Ketones,Urine Negative (Negative); Leukocyte Esterase,Urine Negative (Negative); Nitrite,Urine Negative (Negative); PH, Urine 6.5 (5.0-8.0); Protein,Urine Negative (Negative); Specific Gravity,Urine 1.027 (1.001-1.035); Urobilinogen,Urine <2.0 mg/dL (<2.0)
[2024-08-17 09:45] VITALS: RESP 16
--- NOTE | 2024-08-17 14:17 | P.PN ---
Subjective Progress Note Date: 08/17/24 I was notified by the nurse around 6 this a.m. that the patient woke up and she was confused had left facial droop unable to follow commands and had aphasia as a result code stroke was activated. NIH stroke scale was an [address] of the head CT angiography head and neck and stroke interventionalists Dr. Olivia was reach out to for the code stroke and per the nursing staff he reviewed the images. Per the nurse the patient condition improved other than mild subtle facial droop. The patient will be transferred to [facility] instead of [place]. Objective - Vital Signs Vital signs: Vital Signs Temp 98.5 F 08/17/24 12:00 Pulse 71 08/17/24 12:00 Resp 16 08/17/24 12:00 BP 107/69 08/17/24 12:00 Pulse Ox 96 08/17/24 12:00 FiO2 Intake & Output 08/16/24 08/17/24 08/17/24 18:59 06:59 18:59 Intake Total 1160 480 Balance 1160 480 Weight 61 kg Intake: Oral 1160 480 Other: Voiding Method Toilet Toilet Bedside Commode # Voids 3 2 4 - Exam General: Lying in bed and is not in acute distress. Neuro: Somewhat limited because of patient cooperation. She was at bedside upon examiner. Patient is awake alert oriented to self correctly stated she is in the hospital. She stated the year is 2023. She followed few simple commands. She is able to identify objects correctly such as pen and glasses. No aphasia from limited language Extraocular movement seems intact no nystagmus. Patient has right nasolabial flattening. No dysarthria Motor the strength is limited because of her cooperation but was left in bilateral upper extremity above gravity and appears symmetrical. While the lower extremity patient refused even after multiple attempts by me and the nurse. - Labs CBC & Chem 7: 08/15/24 16:32 08/16/24 07:43 Labs: Abnormal Lab Results - Last 24 Hours (Table) 08/17/24 Range/Units 06:36 POC Glucose (mg/dL) 114 H (70-110) mg/dL Assessment and Plan Assessment: * Episode of dizziness and vomiting, unclear cause. Possibly related to cerebral aneurysm. * Episode of confusion, aphasia, left facial droop around 6 AM the patient had a code stroke activation today NIH was an 8 and currently patient condition is improved. On examination she has right nasolabial flattening. 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 * History of aneurysm repair 38 years ago * Altered mental status with agitation, likely delirium. * Hypertension * Hyperlipidemia * Ex tobacco use Plan: * CTA of head and neck revealed saccular aneurysm near aneurysm clip measuring up to 8 x 7 mm. Neurovascular surgical consultation recommended. This is thought to be arising from the distal right vertebral artery near its expected confluence of the left vertebral artery however the left vertebral artery may terminate as a posterior inferior cerebral artery with diminutive tiny connecting vessel and joining the right vertebral artery. No evidence of dissection of the cervical ICA or vertebral arteries. No evidence of significant stenosis at the carotid bifurcations. No evidence of intracranial high-grade stenosis. * Repeat CT of the head is no acute intracranial process. Remote right inferior temporal lobe injury. * Repeat CT angiography of the head and neck is reported as similar saccular aneurysm near the antrum clip measuring up to 8 x 7 mm. Neurovascular surgical consultation recommended. This is thought to be arising from the distal right vertebral artery near its expected confluence of the left v ertebral artery however the left vertebral artery may terminate as the posterior inferior cerebellar artery with diminutive tiny connecting vessel adjoining the right vertebral artery. * Per Dr. Frazier, consider lumbar puncture to look for subarachnoid hemorrhage but she is not cooperative for it. * Keep blood pressure <160 systolic. * Patient on aspirin 325 mg daily. * Per Dr. Freddie Olivia (Neuro-interventionalist) is recommending MRI of the brain and MRA of the brain. I was notified by nurse that unable to obtain MRI Brain because of clipping. Pending transfer to [facility] for further evaluation and treatment of this cerebral aneurysm. Plan is discussed with her nurse Time with Patient: Less than 30
--- NOTE | 2024-08-17 18:10 | P.PN ---
Subjective Progress Note Date: 08/17/24 This is a 89-year-old female awaiting transfer to [facility] related to concerns for vertebral aneurysm, as recommended per neurology. Neuro interventionalists recommended MRI and MRA of brain,but unable to obtain due to history of clips. CT angio of head neck reported saccular aneurysm near aneurys m clip measuring up to 8.7 mm. Neurovascular surgical consult recommended, which we do not have onsite. This is thought to be arising from the distal right vertebral artery near its expected confluence of the left vertebral artery however the left vertebral artery may terminate as a posterior inferior cerebellar artery with diminutive tiny connecting vessel adjoining the right vertebral artery. No evidence of dissection of the cervical internal carotid arteries or vertebral arteries. No evidence of significant stenosis at the carotid bifurcations. No evidence of intracranial high-grade stenosis. Moderate emphysema. This morning denies dizziness or headache. Denies chest pain, palpitations or shortness of breath. Labs pending. 08/17/2024 sitting up in bed, he reports mild dizziness. Denies blurred vision. Denies nausea or vomiting. Denies chest pain, palpitations or shortness of breath. Maintaining O2 sats in the mid 90s on room air. Tmax 100.9. Apparently earlier this morning around 6 patient woke up confused with left facial droop unable to follow commands with some aphasia and code stroke activated .brain CT reported no acute intracranial process, nonspecific white matter changes likely secondary to chronic small vessel ischemic disease, remote right inferior temporal lobe injury. CTA of head and neck repeated-images reviewed by stroke interventionalists Dr. Olivia. Patient was awaiting transfer to [facility]-no beds available today. Per neurology patient will be transferred to [facility] instead of [place]. Objective - Vital Signs Vital signs: Vital Signs Temp 98.9 F 08/17/24 16:00 Pulse 62 08/17/24 16:00 Resp 16 08/17/24 16:00 BP 130/58 08/17/24 16:00 Pulse Ox 95 08/17/24 16:00 FiO2 Intake & Output 08/16/24 08/17/24 08/17/24 18:59 06:59 18:59 Intake Total 1160 480 Output Total 200 Balance 1160 280 Weight 61 kg Intake: Oral 1160 480 Output: Urine 200 Other: Voiding Method Toilet Toilet Bedside Commode # Voids 3 2 2 - Exam Gen: Elderly appearing, awake, lying in bed ,no acute distress, no aphasia HEENT: Head is atraumatic, normocephalic. Pupils equal, round. Sclerae is anicteric. NECK: Supple. No JVD. LUNGS: Unlabored, equal air entry, clear to auscultation. HEART: Regular rate and rhythm. No murmur. ABDOMEN: Soft. Bowel sounds are present. No masses. No tenderness. EXTREMITIES: No pedal edema. No calf tenderness. NEUROLOGICAL: Limited, due to just waking up, due to her cooperation .patient is awake, alert and oriented x2-3. 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 h/O CVA,CT brain showing remote right temporal infarct CKD III Hypertension Hyperlipidemia Prior nicotine dependence Plan: Continue on current medication regimen ,monitoring and symptomatic treatment. Transfer in progress to [facility] as per neurology for treatment of patient's cerebral aneurysm.Prognosis guarded given multiple complex medical issues. The impression and plan of care has been dictated as directed. : I performed a history and examination of this patient, discussed the same with the dictator. I agree with the dictator's note ,documented as a scribe. Any additional findings or plans will be noted.
[2024-08-17 19:51] VITALS: BP 152/78; PULSE 65; TEMP 97.5
== END 2024-08-17 21:22 | disposition short-term general hospital (02) | DRG 300 ==
LOC: EC 14:26 → 6NMEDSUR 20:41 → 3SCARD 21:07 → OBSVTOIN 08-15 09:26
PROVIDERS: ADMIT Family Medicine; ATTEND Family Medicine
DX: I72.6 Aneurysm of vertebral artery (principal); F05 Delirium due to known physiological condition; R47.01 Aphasia; N18.30 Chronic kidney disease, stage 3 unspecified; J43.9 Emphysema, unspecified; I12.9 Hypertensive chronic kidney disease with stage 1 through stage 4 chronic kidney disease, or unspecified chronic kidney disease; R45.1 Restlessness and agitation; R29.810 Facial weakness; R29.708 NIHSS score 8; E78.5 Hyperlipidemia, unspecified; Z86.73 Personal history of transient ischemic attack (TIA), and cerebral infarction without residual deficits; Z75.1 Person awaiting admission to adequate facility elsewhere; Z86.79 Personal history of other diseases of the circulatory system; Z79.82 Long term (current) use of aspirin; Z79.890 Hormone replacement therapy; Z79.899 Other long term (current) drug therapy; Z87.891 Personal history of nicotine dependence
CPT/HCPCS: 36415; 70450; 70496; 70498; 71046; 80048; 80053; 80061; 81001; 81003; 83735; 84484; 85025; 85610; 85730; 93005; 94760; 96360; 99285